=== PATIENT | female | born 1985 | race Caucasian/White ===

== ENCOUNTER 2017-03-06 17:34 | Emergency (ER) | payer OTHER ==
[~2017-03-06] VITALS: Ht 167.6 cm; Wt 65.4 kg
[~2017-03-06 17:34] MED LIST: DOCU100C33 PO; HYDR-3237 PO; IBUP-1222 PO; PNV91TAB3 PO
[2017-03-06 17:36] VITALS: BP 123/73
[2017-03-06] MEDS ORDERED: HYDROcodone/APAP 7.5-325MG/15ML UDC PO ONE (18:00)
[2017-03-06] MEDS ORDERED: DEXAMETHASONE 4 MG TABLET PO ONE (18:10)
[2017-03-06] MEDS ORDERED: DEXAMETHASONE 4 MG TABLET ONE (18:19)
[2017-03-06] MEDS ORDERED: ONDANSETRON ODT 4 MG ONE (18:19)
[2017-03-06] MEDS ORDERED: ONDANSETRON ODT 4 MG PO ONE (18:30)
== END 2017-03-06 18:38 | disposition home or self-care (01) ==
LOC: ED 18:32
DX: J02.0 Streptococcal pharyngitis (principal)
CPT/HCPCS: 87880; 99283; Q0162